=== PATIENT | male | born 1970 | race Caucasian/White ===

== ENCOUNTER 2021-06-28 15:59 | Emergency (ER) | payer MEDICARE, SELFPAY ==
[2021-06-28 16:01] VITALS: BP 160/75; PULSE 68; RESP 24; TEMP 36.6; O2SAT 93; BMI 39.2
--- NOTE | 2021-06-28 16:30 | EKG12_ITS ---
Test Reason : SYNCOPE Blood Pressure : / mmHG Vent. Rate : 053 BPM Atrial Rate : 053 BPM P-R Int : 216 ms QRS Dur : 092 ms QT Int : 448 ms P-R-T Axes : 045 057 073 degrees QTc Int : 420 ms Sinus bradycardia with 1st degree A-V block Otherwise normal ECG Confirmed by ENEDINA SEALS, ANAHI ([id number]), rewrite editor EDILSON WADE ([id number]) on 07/04/2021 10:53:47 AM Referred By: STEFANI Confirmed By:ANAHI MCCONNELL MD
--- NOTE | 2021-06-28 16:48 | RAD_ITS ---
INDICATION: chest pain EXAMINATION/TECHNIQUE: X-RAY - XR Chest 1 View COMPARISON: None. FINDINGS: Bilateral interstitial and airspace opacities. Sternal cerclage wires and vascular clips are present from a prior sternotomy and coronary artery bypass graft procedure (CABG). The heart is mildly enlarged. No pleural effusion or pneumothorax. No acute osseous abnormalities. RAD/Chest 1 View (Portable) IMPRESSION: Bilateral interstitial and airspace opacities may represent edema and/or infection. Electronically Signed: Pete Blake MD at 17:32 EST Tel , Service support ,
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
[2021-06-28 17:05] LABS: Absolute Lymphocyte Count 1.22 X10^3/uL (0.83-4.51); Absolute Neutrophil Count 6.2 X10^3/uL (2.0-7.7); Basophil# 0.07 X10^3/uL; Basophil% 0.9 % (0-1); Eosinophil# 0.18 X10^3/uL; Eosinophils% 2.2 % (0-5); Hematocrit 33.9 % (40-54); Hemoglobin 10.9 g/dL (13.0-16.5); Lymphocyte # 1.22 X10^3/ul (0.83-4.51); Mean Corp Hgb Conc 32.2 g/dL (32-36); Mean Corpuscular Hgb 27.8 pg (27.0-32.0); Mean Corpuscular Volume 86.5 fL (80-94); Mean Platelet Vol. 10.4 fl (6.2-12.0); Monocyte# 0.44 X10^3/uL; Monocyte% 5.4 % (0-10); NRBC Flagged by Analyzer 0 % (0-5); Neutrophil # 6.19 X10^3/uL (2.7-7.7); Neutrophil % 76.1 % (47-70); Platelet Count 162 K/mm3 (150-450); RBC Distribution Width CV 14.6 % (11.6-14.6); RBC Distribution Width SD 45.8 fl (35.1-43.9); Red Blood Count 3.92 M/mm3 (4.6-6.2); White Blood Count 8.1 K/mm3 (4.4-11.0)
[2021-06-28 17:16] LABS: Anion Gap 6 (5-15); BUN 63 mg/dL (7-18); BUN/Creat Ratio 11.2 RATIO (10-20); Calcium,Total 8.4 mg/dL (8.5-10.1); Chloride 112 mmol/L (98-107); Creatinine, Serum 5.61 mg/dL (0.70-1.30); EST Glomerular Filtration Rate 11 mL/min (>60); Est Glom Filt Rate - Afr Amer 14 mL/min (>60); Estimated Creatinine Clearance 17.91 ml/min; Glucose 108 mg/dL (74-106); Potassium 4.6 mmol/L (3.5-5.1); Sodium Level 140 mmol/L (136-145); Troponin-I HS 24 pg/mL (3.0-78.0)
--- NOTE | 2021-06-28 17:56 | ED.RN ---
PT REQUESTING HIS IV BE REMOVED AND HE WANTS TO GO HOME. PHYSICIAN NOTIFIED
== END 2021-06-28 18:04 | disposition home or self-care (01) ==
PROVIDERS: Emergency Provider Student in an Organized Health Care Education/Training Program
DX: Z04.1 Encounter for examination and observation following transport accident (principal); R55 Syncope and collapse; N17.9 Acute kidney failure, unspecified; I12.9 Hypertensive chronic kidney disease with stage 1 through stage 4 chronic kidney disease, or unspecified chronic kidney disease; E11.22 Type 2 diabetes mellitus with diabetic chronic kidney disease; N18.9 Chronic kidney disease, unspecified; E11.319 Type 2 diabetes mellitus with unspecified diabetic retinopathy without macular edema; F17.210 Nicotine dependence, cigarettes, uncomplicated; Z79.4 Long term (current) use of insulin; Z79.899 Other long term (current) drug therapy
CPT/HCPCS: 71045; 80048; 82077; 84484; 85025; 93005; 99285; J7030; A4216